=== PATIENT | male | born 1995 | race Caucasian/White ===

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

== ENCOUNTER 2017-02-28 22:25 | Emergency (ER) ==
[2017-02-28 22:33] VITALS: BP 119/79; TEMP 98; BMI 27.3
[2017-02-28] MEDS ORDERED: CLEOCIN PO STA (22:41)
[2017-02-28] MEDS ORDERED: MOTRIN PO STA (22:41)
--- NOTE | 2017-02-28 22:43 | ED.PDOC ---
General ED Provider: Dr. CYNTHIA CHAMBERLAIN Chief Complaint: Headache Stated Complaint: Been having headache, behind the eyes, typical migraine, usually I take Ibuprofen, which helps. also has belly ring infecetd. Time Seen by Physician: 22:41 Mode of Arrival: Walk-In Information Source: Patient Primary Care Provider: RAYO BROWN Nursing and Triage Documentation Reviewed and Agree: Yes Neurological Complaint Exam - Headache Complaint/Exam Onset: Gradual Symptoms Are: Still present Timing: Constant Episodes Lasting: Minutes Worst Headache Ever: No Initial Severity: Moderate Current Severity: Moderate Location: Right, Left, Frontal Character: Reports: Typical headache Aggravating: Reports: Bright lights Alleviating: Reports: None Associated Signs and Symptoms: Denies: Dizziness, Seizure, Nausea, Vomiting, Sinus pressure, Fever, Neck pain, Neck stiffness, Decreased LOC, Visual changes Related History: Reports: Similar episode Related Surgical History: Reports: None SAH Risk Factors: Reports: None Meningitis Risk Factors: Reports: None SDH Risk Factors: Reports: None Temporal Arteritis Risk Factors: Reports: None Normal Head CT Within Last 12 Months: No Temporal Artery Tenderness: Present: None Sinus Tenderness: Present: None TMJ Tenderness: Present: None Meningeal Signs Positive: No Pain on Passive Flexion-Positive Kernig's: No ROM Limited In: No Limitiations Focal Weakness: Present: None Focal Sensory Loss: Present: None Gait: Normal Nystagmus Present: No Gag Reflex Present: No [id number]: Normal Findings Romberg Test Positive: No Heel to Toe Normal: No Differential Diagnoses: Migraine Review of Systems - Review Of Systems Constitutional: Reports: No symptoms Eyes: Reports: No symptoms Ears, Nose, Mouth, Throat: Reports: No symptoms Respiratory: Reports: No symptoms Cardiac: Reports: No symptoms GI: Reports: No symptoms : Reports: No symptoms Musculoskeletal: Reports: No symptoms Skin: Reports: No symptoms Neurological: Reports: Headache Endocrine: Reports: No symptoms Hematologic/Lymphatic: Reports: No symptoms All Other Systems: Reviewed and Negative Past Medical History - Past Medical History Previously Healthy: Yes Endocrine: Reports: None Cardiovascular: Reports: None Respiratory: Reports: None Hematological: Reports: None Gastrointestinal: Reports: None Genitourinary: Reports: None Neuro/Psych: Reports: None Musculoskeletal: Reports: None Cancer: Reports: None Last Menstrual Period: 01/28/17 - Surgical History General Surgical History: Reports: None - Family History Family History: Reports: None - Social History Smoking Status: Current every day smoker, Light tobacco smoker Hx Substance Use: No Alcohol Screening: None - Immunizations Tetanus Shot up to Date: Yes Physical Exam - Physical Exam Appearance: Well-appearing, No pain distress, Well-nourished Eyes: L[place], EOMI, Conjunctiva clear ENT: Ears normal, Nose normal, Oropharynx normal Respiratory: Airway patent, Breath sounds clear, Breath sounds equal, Respirations nonlabored Cardiovascular: RRR, Pulses normal, No rub, No murmur GI/: Soft, Nontender, No masses, Bowel sounds normal, No Organomegaly Musculoskeletal: Normal strength, ROM intact, No edema, No calf tenderness Skin: Warm, Dry, Normal color Neurological: Sensation intact, Motor intact, Reflexes intact, Cranial nerves intact, Alert, Oriented Psychiatric: Affect appropriate, Mood appropriate Critical Care Note - Critical Care Note Total Time (mins): 0 Course - Course Orders, Labs, Meds: Orders Category Date Time Status Clindamycin HCl [Cleocin] MEDS 02/28/17 22:41 Stat 300 mg PO ONCE STA Ibuprofen [Motrin] MEDS 02/28/17 22:41 Stat 600 mg PO ONCE STA Vital Signs: Temp Pulse Resp BP Pulse Ox 02/28/17 22:26 98 F 78 18 119/79 97 Departure - Departure Time of Disposition: 22:47 Disposition: HOME SELF-CARE Discharge Problem: Migraine Qualifiers: Migraine type: without aura Status migrainosus presence: without status migrainosus Intractability: not intractable Qualified Code(s): G43.009 - Migraine without aura, not intractable, without status migrainosus Instructions: Cellulitis (ED) Condition: Good Pt referred to PMD for follow-up: Yes Additional Instructions: If the redness and swelling at the belly button not better in 2 days come back. take probiotics take medication with food. Prescriptions: Clindamycin HCl 300 mg PO TID #15 capsule Allergies/Adverse Reactions: Allergies No Known Allergies Allergy (Verified 02/28/17 22:32) Home Medications: Ambulatory Orders Clindamycin HCl 300 mg PO TID #15 capsule 02/28/17 Disposition Discussed With: Patient, Family
== END 2017-02-28 23:25 | disposition home or self-care (01) ==
LOC: ED 22:25
DX: G43.009 Migraine without aura, not intractable, without status migrainosus (principal); L03.311 Cellulitis of abdominal wall; F17.210 Nicotine dependence, cigarettes, uncomplicated
CPT/HCPCS: 99282

== ENCOUNTER 2017-04-13 20:28 | Emergency (ER) ==
[2017-04-13 20:38] VITALS: BP 126/78; TEMP 98.4; BMI 27.3
--- NOTE | 2017-04-13 20:43 | ED.PDOC ---
General ED Provider: Dr. ESPERANZA FUNG-ER Chief Complaint: Non-specific Complaint Stated Complaint: im nauseated and im 2 weeks late-- tests at home are variable Time Seen by Physician: 20:30 Mode of Arrival: Walk-In Information Source: Patient Exam Limitations: No limitations Primary Care Provider: RAYO BROWN Nursing and Triage Documentation Reviewed and Agree: Yes GI Complaint Exam - Abdominal Pain Complaint/Exam Onset: Gradual Duration: 2 weeks Symptoms Are: Still present Timing: Intermittent Initial Severity: Mild Current Severity: Mild Location of Pain: Diffuse Character: Reports: Dull, Aching Aggravating: Reports: None Alleviating: Reports: Spontaneous resolution Associated Signs and Symptoms: Denies: Diaphoresis, Fever, Cough, Chest pain, Dizziness, Back pain, Constipation, Blood in stool, Dysuria, Urinary frequency, Decreased urine output, Decreased appetite Ovarian Torsion Risk Factors: Reports: Reproductive age Related Surgical History: Reports: None Patient Rh Status: Unknown Abdominal Findings: Present: None Differential Diagnoses: , Other Review of Systems - Review Of Systems Constitutional: Reports: No symptoms Eyes: Reports: No symptoms Ears, Nose, Mouth, Throat: Reports: No symptoms Respiratory: Reports: No symptoms Cardiac: Reports: No symptoms GI: Reports: Nausea : Reports: No symptoms Musculoskeletal: Reports: No symptoms Skin: Reports: No symptoms Neurological: Reports: No symptoms Endocrine: Reports: No symptoms Hematologic/Lymphatic: Reports: No symptoms All Other Systems: Reviewed and Negative Past Medical History - Past Medical History Previously Healthy: Yes Endocrine: Reports: None Cardiovascular: Reports: None Respiratory: Reports: None Hematological: Reports: None Gastrointestinal: Reports: None Genitourinary: Reports: None Neuro/Psych: Reports: None Musculoskeletal: Reports: None Cancer: Reports: None Last Menstrual Period: mar 01 for only 2 days - Surgical History General Surgical History: Reports: None - Family History Family History: Reports: None - Social History Smoking Status: Current every day smoker, Light tobacco smoker Hx Substance Use: No Alcohol Screening: None Lives: With family Physical Exam - Physical Exam Appearance: Well-appearing Eyes: [place], EOMI, Conjunctiva clear ENT: Ears normal, Nose normal, Oropharynx normal Neck: Supple Respiratory: Airway patent Cardiovascular: RRR GI/: Soft, Nontender, No masses, Bowel sounds normal, No Organomegaly Musculoskeletal: Normal strength, ROM intact, No edema, No calf tenderness Skin: Warm, Dry, Normal color Neurological: Sensation intact, Motor intact, Reflexes intact, Cranial nerves intact, Alert, Oriented Psychiatric: Affect appropriate, Mood appropriate Critical Care Note - Critical Care Note Total Time (mins): 0 Course - Course Orders, Labs, Meds: Lab Review 04/13/17 20:40 Serum , Qual Negative Orders Category Date Time Status SERUM Stat LAB 04/13/17 20:40 Completed Vital Signs: Temp Pulse Resp BP Pulse Ox 04/13/17 20:29 98.4 F 79 16 126/78 98 Departure - Departure Time of Disposition: 21:13 Disposition: HOME SELF-CARE Discharge Problem: Nausea Instructions: Acute Nausea and Vomiting (ED) Condition: Good Pt referred to PMD for follow-up: Yes Additional Instructions: if no period in 2 more weeks--repeat test--f/u with pcp Allergies/Adverse Reactions: Allergies No Known Allergies Allergy (Verified 04/13/17 20:33) Home Medications: Ambulatory Orders 1 [No Reported Medications] 04/13/17 Disposition Discussed With: Patient
[2017-04-13 21:04] LABS: SERUM PREGNANCY INTERNAL QC INTERNAL QC VALID
== END 2017-04-13 21:17 | disposition home or self-care (01) ==
LOC: ED 20:28
DX: R10.84 Generalized abdominal pain (principal); R11.0 Nausea; F17.210 Nicotine dependence, cigarettes, uncomplicated
CPT/HCPCS: 36415; 84703; 99283

== ENCOUNTER 2017-07-04 19:41 | Emergency (ER) ==
[2017-07-04 19:52] VITALS: BP 112/77; TEMP 98.5; BMI 27.3
[2017-07-04] MEDS ORDERED: DECADRON 4 MG/ML SDV IM STA (20:08)
--- NOTE | 2017-07-04 20:11 | ED.PDOC ---
General ED Provider: Dr. CYNTHIA CHAMBERLAIN Chief Complaint: Rash Stated Complaint: Rash all over the body, Itching, red spots Time Seen by Physician: 20:09 Mode of Arrival: Walk-In Information Source: Patient Primary Care Provider: RAYO BROWN Nursing and Triage Documentation Reviewed and Agree: Yes Reviewed sepsis parameters & appropriate labs ordered?: No System Inflammatory Response Syndrome: Not Applicable Sepsis Protocol: For patient's 13 years and over: Temp is 96.8 and below OR 101 and greater Pulse >90 BPM Resp >20/minute Acutely Altered Mental Status Are patient's symptoms suggestive of a new infection, such as: -Pneumonia -Skin, Soft Tissue -Endocarditis -UTI -Bone, Joint Infection -Implantable Device -Acute Abdominal Infection -Wound Infection -Meningitis -Blood Stream Catheter Infection -Unknown Skin Complaint Exam - Skin Rash/Itching Complaint/Exam Symptoms Are: Still present Initial Severity: Mild Current Severity: Mild Potential Exposures: Reports: Unknown Aggravating: Reports: None Alleviating: Reports: None Associated Signs and Symptoms: Denies: Difficulty breathing, Fever, Chills Skin Findings: Present: Papules, Lesions Differential Diagnoses: Other (dermatomycosis) Review of Systems - Review Of Systems Constitutional: Reports: No symptoms Eyes: Reports: No symptoms Ears, Nose, Mouth, Throat: Reports: No symptoms Respiratory: Reports: No symptoms Cardiac: Reports: No symptoms GI: Reports: No symptoms : Reports: No symptoms Musculoskeletal: Reports: No symptoms Skin: Reports: Rash Neurological: Reports: No symptoms Endocrine: Reports: No symptoms Hematologic/Lymphatic: Reports: No symptoms All Other Systems: Reviewed and Negative Past Medical History - Past Medical History Previously Healthy: Yes Endocrine: Reports: None Cardiovascular: Reports: None Respiratory: Reports: None Hematological: Reports: None Gastrointestinal: Reports: None Genitourinary: Reports: None Neuro/Psych: Reports: None Musculoskeletal: Reports: None Cancer: Reports: None Last Menstrual Period: 06/21/17 - Surgical History General Surgical History: Reports: None - Family History Family History: Reports: None - Social History Smoking Status: Current every day smoker, Light tobacco smoker Hx Substance Use: No Alcohol Screening: None Physical Exam - Physical Exam Appearance: Well-appearing, No pain distress, Well-nourished Eyes: [place], EOMI, Conjunctiva clear ENT: Ears normal, Nose normal, Oropharynx normal Respiratory: Airway patent, Breath sounds clear, Breath sounds equal, Respirations nonlabored Cardiovascular: RRR, Pulses normal, No rub, No murmur GI/: Soft, Nontender, No masses, Bowel sounds normal, No Organomegaly Musculoskeletal: Normal strength, ROM intact, No edema, No calf tenderness Skin: Warm, Dry, Normal color Neurological: Sensation intact, Motor intact, Reflexes intact, Cranial nerves intact, Alert, Oriented Psychiatric: Affect appropriate, Mood appropriate Critical Care Note - Critical Care Note Total Time (mins): 10 Course - Course Orders, Labs, Meds: Orders Category Date Time Status Dexamethasone 4 mg/ml Inj [Decadron 4 mg/ml Sdv] MEDS 07/04/17 20:08 Stat 4 mg IM ONCE STA Vital Signs: Temp Pulse Resp BP Pulse Ox 07/04/17 19:42 98.5 F 76 20 112/77 98 Departure - Departure Time of Disposition: 20:11 Disposition: HOME SELF-CARE Discharge Problem: Dermatomycosis Instructions: Skin Yeast Infection (ED) Condition: Stable Pt referred to PMD for follow-up: Yes IPMP verified?: Yes Additional Instructions: skin hygiene use body lotion for dry skin Prescriptions: Fluconazole [Diflucan] 100 mg PO DAILY #5 tablet Prednisone 10 mg PO BIDWM #14 tablet Allergies/Adverse Reactions: Allergies No Known Allergies Allergy (Verified 04/13/17 20:33) Home Medications: Ambulatory Orders Fluconazole [Diflucan] 100 mg PO DAILY #5 tablet 07/04/17 Prednisone 10 mg PO BIDWM #14 tablet 07/04/17 Disposition Discussed With: Patient, Family
== END 2017-07-04 21:05 | disposition home or self-care (01) ==
LOC: ED 19:41
DX: B36.9 Superficial mycosis, unspecified (principal); F17.210 Nicotine dependence, cigarettes, uncomplicated
CPT/HCPCS: 96372; 99282